=== PATIENT | female | born 1955 | race Caucasian/White ===

== ENCOUNTER 2022-01-09 10:08 | Observation (INO) ==
[2022-01-09] MEDS ORDERED: MAGNESIUM SULF RIDER 4 GM/100 ML PREMIX IV PRN (11:37)
[2022-01-09] MEDS ORDERED: ACETAMINOPHEN 325 MG TABLET PO PRN (11:37)
[2022-01-09] MEDS ORDERED: POTASSIUM CHLORIDE 20 MEQ TABLET PO PRN (11:37)
[2022-01-09] MEDS ORDERED: DOCUSATE SODIUM 100 MG CAPSULE PO PRN (11:37)
[2022-01-09] MEDS ORDERED: diphenhydrAMINE CAP 25 MG CAPSULE PO PRN (11:37)
[2022-01-09] MEDS ORDERED: guaiFENesin/DM ER 600-30 MG TABLET PO PRN (11:37)
[2022-01-09] MEDS ORDERED: ONDANSETRON 4 MG/2 ML VIAL IV PRN (11:37)
[2022-01-09] MEDS ORDERED: ALUMINUM/MAGNES/SIMETH MAX STR 30 ML UDCUP PO PRN (11:37)
[2022-01-09] MEDS ORDERED: hydrALAZINE 20 MG/1 ML VIAL IV PRN (11:37)
[2022-01-09] MEDS ORDERED: ZALEPLON 5 MG CAPSULE PO PRN (11:37)
[2022-01-09] MEDS ORDERED: PROMETHAZINE 25 MG TABLET PO PRN (11:37)
[2022-01-09] MEDS ORDERED: MAGNESIUM SULF RIDER 2 GM/50 ML PREMIX IV PRN (11:37)
[2022-01-09] MEDS ORDERED: HEPARIN DRIP 25,000 UNITS/500 ML PREMIX IV SCH (13:15)
[2022-01-09 13:16] LABS: Basophils # 0.1 10*3/uL (0.0-0.2); Basophils % 0.8 % (0.0-0.8); Eosinophils # 0.3 10*3/uL (0.0-0.87); Eosinophils % 4.6 % (0.00-10.9); Hematocrit 36.8 VOL% (35.7-47.0); Immature Granulocytes % 0.5 %; Immature Granulocytes Absolute 0.03 #; Lymphocytes # 1.8 10*3/uL (1.4-4.0); Lymphocytes % 29.8 % (21.3-54.2); Mean Corpuscular HGB Conc 32.6 GM/DL (32-36); Mean Corpuscular Volume 91.8 FL (87-102); Mean Platelet Volume 9.9 FL (9.6-12.0); Monocytes # 0.6 10*3/uL (0.11-0.8); Monocytes % 10.6 % (1.7-12.7); Neutrophils % 53.7 % (38.7-73.9); Platelet Count 267 T/CUMM (130-400); Red Blood Count 4.01 MC/CUMM (3.8-5.5); Red Cell Distribution Width 13.1 % (9.3-17.3); White Blood Count 6.1 T/CUMM (4-12)
[2022-01-09 13:41] LABS: Albumin 3.8 G/DL (3.4-5.0); Bilirubin,Total 0.6 MG/DL (0.20-1.00); Calcium 9.4 MG/DL (8.5-10.1); Osmolality,Calculated 277.7 MOS/KG (273-304); Potassium 4.1 MMOL/L (3.5-5.1); Total Protein 7.7 G/DL (6.4-8.2)
[2022-01-09] MEDS ORDERED: PANTOPRAZOLE 40 MG TABLET PO PRN (14:36)
[2022-01-09] MEDS ORDERED: CLORAZEPATE 3.75 MG TABLET PO PRN (14:36)
[2022-01-09] MEDS: INSULIN LISPRO 100 UNIT/ML SUBCUT SCH ×2 (16:09→21:05)
[2022-01-09] MEDS ORDERED: GLUCAGON 1 MG VIAL IM PRN (16:54)
[2022-01-09] MEDS ORDERED: DEXTROSE 10% 250 ML BAG IV PRN (16:58)
[2022-01-09] MEDS ORDERED: LORATADINE 10 MG TABLET PO SCH (17:00)
[2022-01-09] MEDS ORDERED: ATORVASTATIN 40 MG TABLET PO SCH (17:00)
[2022-01-09] MEDS ORDERED: OLMESARTAN 20 MG TABLET PO SCH (17:00)
[2022-01-09] MEDS ORDERED: CLOPIDOGREL 75 MG TABLET PO SCH (17:00)
[2022-01-09] MEDS ORDERED: EZETIMIBE 10 MG TABLET PO SCH (17:00)
[2022-01-09] MEDS ORDERED: METOPROLOL SUCCINATE XL 50 MG TABLET PO SCH (17:00)
[2022-01-09] MEDS: ASPIRIN EC 325 MG TABLET PO SCH (17:43)
[2022-01-09 20:54] LABS: INR 0.9; PT Patient Result 10.3 SECS (10.5-12.0); Partial Thromboplastin Time 34.7 SECS (23.7-32.9)
[2022-01-09] MEDS ORDERED: INSULIN REGULAR 100 UNIT/ML SUBCUT SCH (21:00)
[2022-01-09] MEDS ORDERED: INSULIN GLARGINE 100 UNIT/ML SUBCUT SCH (21:00)
[2022-01-09] MEDS: HYDROmorphone 1 MG/1 ML SYRINGE IV PRN (21:03)
[2022-01-09] MEDS ORDERED: HEPARIN 5,000 UNIT/1 ML VIAL IV ONE (21:10)
[2022-01-10 03:00] LABS: Basophils # 0.1 10*3/uL (0.0-0.2); Basophils % 0.6 % (0.0-0.8); Eosinophils # 0.3 10*3/uL (0.0-0.87); Hematocrit 33.6 VOL% (35.7-47.0); Immature Granulocytes % 0.5 %; Immature Granulocytes Absolute 0.04 #; Lymphocytes # 3.7 10*3/uL (1.4-4.0); Lymphocytes % 44.5 % (21.3-54.2); Mean Corpuscular HGB Conc 32.7 GM/DL (32-36); Mean Corpuscular Volume 93.1 FL (87-102); Mean Platelet Volume 9.9 FL (9.6-12.0); Monocytes # 0.7 10*3/uL (0.11-0.8); Monocytes % 8.9 % (1.7-12.7); Neutrophils % 41.5 % (38.7-73.9); Platelet Count 243 T/CUMM (130-400); Red Blood Count 3.61 MC/CUMM (3.8-5.5); Red Cell Distribution Width 13.2 % (9.3-17.3); White Blood Count 8.3 T/CUMM (4-12)
[2022-01-10 03:22] LABS: PT Patient Result 10.8 SECS (10.5-12.0); Partial Thromboplastin Time 56.4 SECS (23.7-32.9)
[2022-01-10 03:26] LABS: Bilirubin,Total 0.4 MG/DL (0.20-1.00); Calcium 8.3 MG/DL (8.5-10.1); Potassium 3.6 MMOL/L (3.5-5.1); Total Protein 6.7 G/DL (6.4-8.2)
[2022-01-10] MEDS: HYDROmorphone 1 MG/1 ML SYRINGE IV PRN (03:47)
[2022-01-10 08:01] VITALS: BP 126/58
[2022-01-10 08:07] LABS: INR 0.9; PT Patient Result 10.5 SECS (10.5-12.0); Partial Thromboplastin Time 56.9 SECS (23.7-32.9)
[2022-01-10] MEDS: INSULIN LISPRO 100 UNIT/ML SUBCUT SCH (08:09)
[2022-01-10] MEDS ORDERED: PANTOPRAZOLE 40 MG TABLET PO SCH (09:00)
[2022-01-10] MEDS ORDERED: amLODIPine 5 MG TABLET PO SCH (09:00)
[2022-01-10] MEDS: ASPIRIN EC 325 MG TABLET PO SCH (09:37)
[2022-01-10] MEDS ORDERED: cilostazoL 50 MG TABLET PO SCH (10:30)
== END 2022-01-10 11:07 | disposition home or self-care (01) ==
LOC: N.ULTRA 10:08 → N.3E 10:08
PROVIDERS: ADMIT Internal Medicine Cardiovascular Disease; ATTEND Internal Medicine Cardiovascular Disease